=== PATIENT | male | born 1945 | race Asian ===

== ENCOUNTER 2021-02-12 10:28 | Emergency (ER) | payer BC, OTHER ==
[~2021-02-12] VITALS: Ht 162.6 cm; Wt 61.2 kg
[2021-02-12] MEDS ORDERED: DOCUSATE SOD 100 MG CAP PO ONE (10:45)
[2021-02-12] MEDS ORDERED: SODIUM CHLORIDE 0.9% 1,000 ML IV ONE ×2 (10:45)
[2021-02-12 11:15] LABS: Albumin 3.7 g/dL (3.4-5.0); Anion Gap 7 (5-15); Basophils # (auto) 0.2 10 ^3/uL (0-0.2); Basophils % (auto) 2.1 % (0.0-2.0); Blood Urea Nitrogen 16 mg/dL (7-18); Calcium 8.6 mg/dL (8.5-10.1); Carbon Dioxide 25 mmol/L (21-32); Chloride 107 mmol/L (98-107); Eosinophils # (auto) 0 10 ^3/uL (0-0.8); Eosinophils % (auto) 0.3 % (0.0-7.0); Glucose 126 mg/dL (74-106); Hematocrit 44.4 % (41.0-53.0); Hemoglobin 15.1 g/dL (13.5-17.5); Lymphocytes % (auto) 12.8 % (10.0-50.0); Mean Corpuscular Hemoglobin 30.5 pg (28.0-32.0); Mean Corpuscular Hgb Conc. 33.9 g/dL (32.0-36.0); Mean Corpuscular Volume 90.1 fL (80.0-100.0); Monocytes # (auto) 0.3 10 ^3/uL (0-1.3); Neutrophils # (auto) 6.5 10 ^3/uL (1.6-8.6); Neutrophils % (auto) 80.8 % (37.0-80.0); Platelet Count (auto) 163 10^3/uL (140-450); Potassium 3.3 mmol/L (3.5-5.1); Red Blood Cells 4.93 10^6/uL (4.5-5.90); Red Cell Distribution Width 14.3 % (11.8-14.3); Sodium 139 mmol/L (136-145)
[2021-02-12 11:20] LABS: Alanine Aminotransferase 31 U/L (16-61); Alkaline Phosphatase 94 U/L (45-117); Aspartate Aminotransferase 18 U/L (15-37); BUN/Creatinine Ratio 12.3; Bilirubin, Total 0.7 mg/dL (0.2-1.0); GFR African American 69 mL/min; GFR Non-African American 57 mL/min; Total Protein 7.7 g/dL (6.4-8.2)
[2021-02-12] MEDS ORDERED: POTASSIUM EFFERVESENT TAB 25 MEQ PO ONE (12:30)
[2021-02-12 14:00] VITALS: BP 137/73
== END 2021-02-12 15:42 | disposition home or self-care (01) ==
LOC: EDBD 10:28 → ER 10:28
DX: K59.00 Constipation, unspecified (principal); E87.6 Hypokalemia; R10.84 Generalized abdominal pain; I10 Essential (primary) hypertension
CPT/HCPCS: 36415; 71045; 74176; 80053; 84484; 85025; 93005; 96360; 96361